=== PATIENT | female | born 1965 | race Hispanic/Latino ===

== ENCOUNTER 2021-12-10 08:33 | Day surgery (SDC) | payer OTHER ==
[2021-12-04 15:40] LABS: BASOPHILS % (AUTO) 0.5 % (0.0-5.0); EOSINOPHILS % (AUTO) 2.4 % (0.0-8.0); HEMATOCRIT 41.2 % (36-48); LYMPHOCYTES % (AUTO) 36.2 % (21.0-51.0); MEAN CORPUSCULAR HGB CONC 33.7 g/dL (32.0-36.0); MONOCYTES % (AUTO) 8.3 % (3.0-13.0); NEUTROPHILS % (AUTO) 52.1 % (40.0-77.0); PLATELET COUNT (AUTO) 281 K/uL (130-400); RED BLOOD CELL COUNT(AUTO) 4.63 MIL/uL (4.00-5.50); WHITE BLOOD COUNT (AUTO) 7.8 K/uL (4.8-10.8)
[2021-12-04 15:48] LABS: APPEARANCE,URINE CLEAR (CLEAR); BILIRUBIN,URINE NEGATIVE (NEGATIVE); COLOR,URINE YELLOW (YELLOW); GLUCOSE, URINE (UA) NEGATIVE (NEGATIVE); KETONES,URINE NEGATIVE (NEGATIVE); LEUKOCYTE ESTERASE ,URINE NEGATIVE (NEGATIVE); NITRATE,URINE NEGATIVE (NEGATIVE); OCCULT BLOOD,URINE NEGATIVE (NEGATIVE); PROTEIN,URINE NEGATIVE (NEGATIVE); UROBILINOGEN,URINE 0.2 mg/dL (0.2-1.0)
[2021-12-04 15:52] LABS: CREATININE 0.7 mg/dL (0.5-1.5); POTASSIUM 3.4 mmol/L (3.5-5.1)
[2021-12-04 16:14] LABS: INR 0.93 (0.85-1.15)
[2021-12-04 16:15] LABS: PARTIAL THROMBOPLASTIN TIME 24.2 SEC (26.3-35.5)
[2021-12-09 12:19] VITALS: BP 183/85
[2021-12-10] VITALS (17 sets, daily range): BP systolic 88–130; BP diastolic 39–78
[~2021-12-10] VITALS: Ht 167.6 cm; Wt 78.2 kg
[~2021-12-10 08:33] MED LIST: CEFAZOLIN SODIUM 1 GM VIAL ONE; ESTROGENS,CONJUGATED 0.625 MG/GM 42.5 GM VAG CRM VG ONE; GENTAMICIN 80 MG/NS 100 ML PB 100 ML IV SCH; LIDOCAINE 1%-EPI 1:100,000 20 ML VIAL IJ ONE; NITR100C4 PO
[2021-12-10] MEDS ORDERED: LACTATED RINGERS 1000ML 1,000 ML IV ONE (08:46)
[2021-12-10] MEDS: CEFAZOLIN SODIUM 1 GM VIAL IVP SCH ×2 (08:46→10:25)
[2021-12-10] MEDS ORDERED: SUCCINYLCHOLINE CHLORIDE 20 MG/ML 10 ML VIAL ONE (09:09)
[2021-12-10] MEDS ORDERED: LIDOCAINE PF 100MG/5ML (2%) SYRINGE 5ML ONE (09:09)
[2021-12-10] MEDS ORDERED: DEXAMETHASONE SOD PHOSPHATE 10MG/ML 1ML VIAL ONE (09:09)
[2021-12-10] MEDS ORDERED: GLYCOPYRROLATE 1 MG/5 ML SYRINGE ONE (09:10)
[2021-12-10] MEDS ORDERED: NEOSTIGMINE 5MG/5ML SYR IV ONE (09:10)
[2021-12-10] MEDS ORDERED: MIDAZOLAM HCL 1 MG/ML 2ML VIAL ONE (09:10)
[2021-12-10] MEDS ORDERED: PROPOFOL 10 MG/ML 20ML VIAL IV ONE (09:10)
[2021-12-10] MEDS ORDERED: ONDANSETRON 4MG INJ ONE (09:11)
[2021-12-10] MEDS ORDERED: ROCURONIUM 10MG/1ML SYR 10 MG/ML ML ONE (09:11)
[2021-12-10] MEDS ORDERED: FENTANYL CITRATE PF 50 MCG/1 ML 2ML VIAL ONE (09:12)
[2021-12-10] MEDS ORDERED: MEPERIDINE-PF 25 MG/ML SYG ONE (11:04)
== END 2021-12-10 13:10 | disposition home or self-care (01) ==
LOC: DAH 08:33
PROVIDERS: ATTEND Urology
DX: N39.3 Stress incontinence (female) (male) (principal); Z79.899 Other long term (current) drug therapy; Z79.01 Long term (current) use of anticoagulants
CPT/HCPCS: 80048; 85025; 85610; 85730; 87088; 87426; 81003; 36415; 71045; 93005; 57288; A6260; A4223 ×2; A4663; J7120 ×2; A4215 ×2; A4452; A4344; C1771; J3010; J0690 ×2; J3490 ×2; J1100; J2710; J0330; J2001; J2250; J2704; J2405; J2175; J1580; G0168; A4222; A4221; A4600